=== PATIENT | female | born 1975 | race Caucasian/White ===

== ENCOUNTER 2021-12-27 06:30 | Day surgery (SDC) | payer BC ==
--- NOTE | 2021-12-24 11:51 | PREOPHP ---
Date of Admission: 12/27/2021 History Of Present Illness: This is a -nsoe-ybl female with IUD, is not retrievable here i n the office. We planned to do hysteroscopy, removal of the old IUD, and insertion of new IUD. Full counseling concerning procedure and possible complications including infection; blood loss; anesthet ic complications; injury to bladder, bowel, ureter; postoperative complications; clots in legs; pneum onia. The patient knows fully this does not constitute all the possible problems that could occur du ring or following surgery. Family History: Mother with hypertension. Brother with stroke. Paternal grandfather and a maternal aunt with heart attack. Maternal grandmother with stroke. Paternal grandmother with bladder cancer . Past Surgical History: The patient has had breast surgery and cardiac ablation, went [facility]. Had a tubal in 1997. IUD is for bleeding control, 2 C-sections. Social History: Has been a smoker in the past. Physical Examination: HEENT: Clear. Pupils equal, round, reactive to light and accommodation. Conjunctivae well perfused . No oral, lingual, or buccal lesions. Chest and Lungs: Clear. Heart: Without murmurs, thrills, heaves, or rubs. Breasts: Not examined. Abdomen: Clear. Assessment And Plan: Uterus small, adnexa clear. We will proceed with hysteroscopy, D and C, remova l of old IUD and insertion of new IUD. MARGRET/JC Voice ID: [id number]
[2021-12-24 15:41] LABS: Absolute Lymphocytes (CBC) 0.8 K/uL (0.7-4.9); Hematocrit 38.8 % (36.0-45.0); Lymphocytes % 18.3 % (15.3-44.8); MPV 8.6 fL (7.6-11.3)
[2021-12-24 15:42] LABS: Urine Appearance CLEAR (Clear); Urine Bilirubin NEGATIVE (Negative); Urine Blood NEGATIVE (Negative); Urine Color YELLOW (Yellow); Urine Glucose NEGATIVE (Negative); Urine Microscopic Reflex NO UMIC; Urine Protein NEGATIVE (Negative); Urine Specific Gravity <=1.005 (1.005-1.030); Urine Urobilinogen 0.2 mg/dL (0.2-1.0)
[2021-12-24 15:43] LABS: Protime INR 1.02
[2021-12-27 06:45] LABS: Specific Gravity > 1.030 (1.005-1.030)
[2021-12-27] MEDS ORDERED: Ringers Lactate 1,000 ML IV ONE (06:45)
[2021-12-27] MEDS ORDERED: CEFAZOLIN SODIUM 1 GM/VIAL ONE (06:45)
[2021-12-27] MEDS ORDERED: NA CHLORIDE 0.9% 50 ML ONE (06:47)
[2021-12-27 06:56] VITALS: O2SAT 100
[2021-12-27] MEDS ORDERED: LIDOCAINE 1% W/EPI 1:100,000 10 ML VIAL ONE (07:14)
[2021-12-27] MEDS ORDERED: NA CHLORIDE 0.9% 2,000 ML ONE (07:14)
[2021-12-27] MEDS ORDERED: SILVER NITRATE 1 APPL TOP ONE (07:14)
[2021-12-27] MEDS ORDERED: FENTANYL CITR 100 MCG/2 ML ONE (08:05)
[2021-12-27] MEDS ORDERED: MIDAZOLAM HCL 2 MG/2 ML INJ ONE (08:05)
[2021-12-27] MEDS ORDERED: LIDOCAINE 1% MPF 30 ML VIAL ONE (08:05)
[2021-12-27] MEDS ORDERED: propofoL 200 MG/20 ML VIAL IV ONE (08:05)
--- NOTE | 2021-12-27 09:07 | OP ---
Surgeon: Vincenzo Pascal MD Preoperative Diagnosis: Impacted IUD. Postoperative Diagnosis: Impacted IUD. Procedures Performed: Hysteroscopy, D and C, removal of IUD. Indication: Full preoperative counseling concerning procedure and possible complications including i nfection; blood loss; anesthetic complications; injury to bladder, bowel, ureter; postoperative compl ications; clots in legs; and pneumonia. The patient knows fully well this does not constitute all th e possible problems that could occur during or following surgery. She was given 1 g of Ancef prior t o the procedure. Procedure In Detail: After adequate general anesthesia, the patient was prepped and draped and place d in dorsal lithotomy position. Time-out was performed. The sound was then performed after the ante rior cervical lip was grasped with a single-tooth tenaculum. Uterus sounded to approximately 7 to 7. 5 cm. Hysteroscopy was performed. The IUD was in the lower uterine segment. I think it had probabl y been partially removed in the office, but at that point the patient was intolerant and we had to st op. The IUD was removed with light curettage and dressing forceps. At this point, D and C was perfo rmed lightly. Specimen sent to pathology. Retractors were removed. No bleeding was seen from the c ervical tenaculum juarez and none from the uterus. Minimal blood loss during the procedure. The nicole ent was sent to recovery room in good condition. Final Diagnoses: Impacted IUD - Mirena, hysteroscopy, D and C, removal of IUD performed. MARGRET/JC Voice ID: [id number] Report ID: [id number]
--- NOTE | 2021-12-27 09:07 | DS ---
Hospital Course: A 46-year-old female, who underwent hysteroscopy, D and C, and removal of IUD. Gen eral anesthesia, minimal blood loss. 1 g of Ancef had been given for prophylaxis. Tolerated all pro cedures well. The IUD was removed without difficulty. She will be sent to recovery room and subsequ ently home. If she feels good enough, she will come to my office later this afternoon for IUD insert ion of a new device, if not tomorrow or even next week. She is to watch for any temperature elevatio n of 100 degrees or greater, severe pain, heavy bleeding, or any other type of abnormalities. She gilmore s promethazine at home in case she has nausea or vomiting, which the patient says she tends to have a fter surgical procedures. Final Diagnoses: Impacted IUD, hysteroscopy, D and C, removal of IUD performed under general anesthe tic. MARGRET/JC Voice ID: [id number] Report ID: [id number]
[2021-12-27 10:16] VITALS: TEMP 98.4
[2021-12-27 10:20] VITALS: BP 123/75
== END 2021-12-27 09:35 | disposition home or self-care (01) ==
LOC: OR 06:30
PROVIDERS: ATTEND Specialist
PROC: 0UJD8ZZ Inspection of Uterus and Cervix, Via Natural or Artificial Opening Endoscopic (ICD-10-PCS; 2021-12-27)
PROC: 0UC98ZZ Extirpation of Matter from Uterus, Via Natural or Artificial Opening Endoscopic (ICD-10-PCS; principal; 2021-12-27 07:30)
PROC: 0UDB7ZX Extraction of Endometrium, Via Natural or Artificial Opening, Diagnostic (ICD-10-PCS; 2021-12-27 07:30)
DX: T83.39XA Other mechanical complication of intrauterine contraceptive device, initial encounter (principal); Z20.822 Contact with and (suspected) exposure to COVID-19
CPT/HCPCS: 85025; 36415; 86900; 86850; 81025; 85610; 86901; 88300; 88305; 85730; 81003; 58562; 58558; U0003; J2704; J2250; J3010; J7120; J7030; J0690